=== PATIENT | female | born 1970 | race Caucasian/White ===

== ENCOUNTER 2022-04-12 07:03 | Emergency (ER) | payer OTHER ==
[2022-04-12 07:23] VITALS: PULSE 94; BMI 34.0
[2022-04-12 09:29] LABS: BASO % 0.3 % (0-2.0); EOS % 1.4 % (0-4.5); HEMATOCRIT 43.6 % (32.4-45.2); HEMOGLOBIN 14.6 GM/dL (10.7-15.3); MCH 31.6 pg (25.7-33.7); MCHC 33.4 g/dl (32.0-36.0); MEAN CELL VOLUME 94.6 fl (80-96); MEAN PLT VOLUME 8.7 fl (7.5-11.1); MONO % 9.2 % (3.8-10.2); NEUT % 74.1 % (42.8-82.8); PLATELET COUNT 295 10^3/uL (134-434); RBC 4.61 M/mm3 (3.60-5.2); RDW 14.2 % (11.6-15.6); WHITE BLOOD COUNT 7.1 K/mm3 (4.0-10.0)
[2022-04-12 09:40] LABS: INR 0.94 (0.83-1.09); PROTHROMBIN TIME (PATIENT) 10.8 SEC (9.7-13.0)
[2022-04-12 09:43] LABS: ACTIVATED PTT 31.2 SECONDS (25.2-36.5)
[2022-04-12 09:48] LABS: CALCIUM 9.5 mg/dL (8.5-10.1)
[2022-04-12 09:52] LABS: CREATININE 0.7 mg/dL (0.55-1.3)
[2022-04-12 09:53] LABS: TOT PROT 7.2 g/dl (6.4-8.2)
[2022-04-12 09:54] LABS: BILIRUBIN,TOTAL 0.4 mg/dL (0.2-1)
[2022-04-12 09:57] LABS: N-TERMINAL BNP 175.8 pg/ml (5-125)
[2022-04-12] MEDS ORDERED: ALBUTEROL SO4 2.5/IPRATROPIUM 0.5 INH SOL 3 ML VIAL.NEB. NEB ONE (10:09)
[2022-04-12] MEDS: ALBUTEROL SO4 2.5/IPRATROPIUM 0.5 INH SOL 3 ML VIAL.NEB. NEB SCH (10:35)
[2022-04-12 14:20] VITALS: BP 137/65; TEMP 97.8
== END 2022-04-12 14:36 | disposition left against medical advice (07) ==
LOC: JER 07:03
PROC: 3E0F7GC Introduction of Other Therapeutic Substance into Respiratory Tract, Via Natural or Artificial Opening (ICD-10-PCS; principal; 2022-04-12)
DX: R06.02 Shortness of breath (principal); R05.1 Acute cough; F17.210 Nicotine dependence, cigarettes, uncomplicated
CPT/HCPCS: 0241U-QW; 36415; 71046-TC-FY; 71275-TC; 80053; 83880; 84484; 85025; 85379; 85610; 85730; 86850; 86900; 86901; 93005; 93010; 94640; 99285-25